=== PATIENT | female | born 1970 | race Caucasian/White ===

== ENCOUNTER 2016-11-29 15:46 | Observation (INO) | payer OTHER ==
[2016-11-29] MEDS ORDERED: DEMEROL INJ IVP ONE (16:19)
[2016-11-29] MEDS ORDERED: ZOFRAN INJ 4 MG VIAL IVP ONE (16:19)
[2016-11-29] MEDS ORDERED: NS 1000 ML 1,000 ML IV ONE (16:19)
--- NOTE | 2016-11-29 16:20 | DR.GENAD ---
HPI - PCP Primary Care Physician: radames olmedo - Complaint/Symptoms Chief Complaint:: patient stated she has been vomiting and diarrhea since last tuesday. went to her doctor last tuesday and was told her gallbladder was bad. seen a surgon this morning they are trying to schedule her surgery but for pain comtroll to come to the er. she seen dr hicks. - Source History Provided: Patient - Mode of Arrival Mode of Arrival: Ambulatory - Timing Onset of Chief Complaint: 11/15/16 PMH - PMH Past Medical History: No Past Surgical History: Yes Surgical History: [employer] Surgery, Hysterectomy - Family History History of Family Medical Conditions: No - Social History Does patient currently use any type of tobacco product: Yes Have you used tobacco products in the last 12 months: Yes Type of Tobacco Use: Cigarettes How many years tobacco product used: 16 Does any household member use tobacco: No Alcohol Use: Rarely Do you use any recreational Drugs:: No Lives With: Family Lives Where: Home - infectious screening In the last 2 months have you had wt loss of >10#?: NO Have you had fever, night sweats or hemotysis?: No Have you traveled outside the country in the last 6 months?: No Isolation: Standard PE - Vital Signs Vitals: Temperature 98.1 F Pulse Rate 82 Respiratory Rate 16 Blood Pressure 107/77 O2 Sat by Pulse Oximetry 100 - Discharge Plan Condition: Stable - Follow ups/Referrals Follow ups/Referrals: RADAMES OLMEDO [Primary Care Provider] - 3 days - Instructions
[2016-11-29] MEDS ORDERED: NS 1000 ML 1,000 ML ONE ×2 (16:28→20:22)
[2016-11-29 16:38] LABS: BASOPHILS # (AUTO) 0.2 X10^3/uL (0.0-0.1); BASOPHILS % (AUTO) 1.4 % (0.2-1.0); EOSINOPHILS # (AUTO) 0.2 x10^3/uL (0.0-0.2); EOSINOPHILS % (AUTO) 1.8 % (0.9-2.9); HEMATOCRIT 39.6 % (36.0-47.0); HEMOGLOBIN 13.5 g/dL (12.0-16.0); LYMPHOCYTES # (AUTO) 2.9 X10^3/uL (1.3-2.9); LYMPHOCYTES % (AUTO) 26.4 % (21.0-51.0); MEAN CORPUSCULAR HEMOGLOBIN 31.2 pg (27.0-34.0); MEAN CORPUSCULAR HGB CONC 34.2 g/dL (33.0-35.0); MEAN CORPUSCULAR VOLUME 91.2 fL (80.0-100.0); MEAN PLATELET VOLUME 8.7 fL (7.4-11.0); MONOCYTES # (AUTO) 0.6 x10^3/uL (0.3-0.8); MONOCYTES % (AUTO) 5.4 % (0.0-13.0); NEUTROPHILS # (AUTO) 7.2 x10^3/uL (2.2-4.8); PLATELET COUNT 267 X10^3/uL (150.0-450.0); RED BLOOD COUNT 4.34 X10^6/uL (3.5-5.4); RED CELL DISTRIBUTION WIDTH 13.5 % (11.6-16.5); WHITE BLOOD COUNT 11.1 X10^3/uL (3.6-10.0)
[2016-11-29] MEDS ORDERED: ZOFRAN INJ 4 MG VIAL ONE (16:39)
[2016-11-29] MEDS ORDERED: DEMEROL INJ ONE (16:39)
[2016-11-29 17:09] LABS: ALANINE AMINOTRANSFERASE 25 Units/L (12-78); ALBUMIN 3.6 g/dL (3.4-5.0); ALKALINE PHOSPHATASE 72 Units/L (46-116); AMYLASE 81 Units/L (25-115); ASPARTATE AMINO TRANSFERASE 21 Units/L (15-37); BLOOD UREA NITROGEN 11 mg/dL (7-18); CALCIUM 8.2 mg/dL (8.5-10.1); CARBON DIOXIDE 28.4 mmol/L (21-32); CHLORIDE 106 mmol/L (98-107); CREATININE 0.91 mg/dL (0.55-1.02); GLUCOSE 90 mg/dL (65-99); LIPASE 190 Units/L (73-393); SODIUM 139 mmol/L (136-145); TOTAL PROTEIN 6.9 g/dL (6.4-8.2); eGFR BLACK RACES > 60 (>60); eGFR NON BLACK RACES > 60 (>60)
[2016-11-29] MEDS: NS 1000 ML 1,000 ML IV SCH (20:25)
[2016-11-29] MEDS: DEMEROL INJ IVP PRN (21:01)
[2016-11-30 03:05] LABS: BILIRUBIN,URINE NEGATIVE (NEGATIVE); BLOOD/HEMOGLOBIN,URINE 2+ (NEGATIVE); GLUCOSE, URINE NEGATIVE (NEGATIVE); KETONES,URINE NEGATIVE (NEGATIVE); LEUKOCYTE ESTERASE ,URINE NEGATIVE (NEGATIVE); NITRITES,URINE NEGATIVE (NEGATIVE); PROTEIN,URINE NEGATIVE (NEGATIVE); UROBILINOGEN,URINE NORMAL (NORMAL)
[2016-11-30 03:11] LABS: APPEARANCE,URINE CLEAR (CLEAR); BACTERIA,URINE NEGATIVE /HPF (NEGATIVE); COLOR,URINE YELLOW (YELLOW); RBC,URINE 0-3 /HPF (NEGATIVE); SQUAMOUS EPITHELIAL CELL,UR RARE /HPF (NEGATIVE)
[2016-11-30] MEDS: DEMEROL INJ IVP PRN ×5 (03:25→22:07)
[2016-11-30] MEDS: NS 1000 ML 1,000 ML IV SCH ×3 (04:12→21:43)
[2016-11-30 05:18] LABS: BASOPHILS # (AUTO) 0.1 X10^3/uL (0.0-0.1); BASOPHILS % (AUTO) 0.6 % (0.2-1.0); EOSINOPHILS # (AUTO) 0.3 x10^3/uL (0.0-0.2); EOSINOPHILS % (AUTO) 2.5 % (0.9-2.9); HEMATOCRIT 35.8 % (36.0-47.0); HEMOGLOBIN 12.3 g/dL (12.0-16.0); LYMPHOCYTES # (AUTO) 3.4 X10^3/uL (1.3-2.9); LYMPHOCYTES % (AUTO) 34.8 % (21.0-51.0); MEAN CORPUSCULAR HEMOGLOBIN 31.7 pg (27.0-34.0); MEAN CORPUSCULAR HGB CONC 34.3 g/dL (33.0-35.0); MEAN CORPUSCULAR VOLUME 92.7 fL (80.0-100.0); MEAN PLATELET VOLUME 9.6 fL (7.4-11.0); MONOCYTES # (AUTO) 0.7 x10^3/uL (0.3-0.8); MONOCYTES % (AUTO) 7.4 % (0.0-13.0); NEUTROPHILS # (AUTO) 5.4 x10^3/uL (2.2-4.8); NEUTROPHILS % (AUTO) 54.7 % (42.0-75.0); PLATELET COUNT 228 X10^3/uL (150.0-450.0); RED BLOOD COUNT 3.86 X10^6/uL (3.5-5.4); RED CELL DISTRIBUTION WIDTH 13.5 % (11.6-16.5); WHITE BLOOD COUNT 9.9 X10^3/uL (3.6-10.0)
[2016-11-30 05:36] LABS: ALANINE AMINOTRANSFERASE 21 Units/L (12-78); ALBUMIN 2.9 g/dL (3.4-5.0); ALKALINE PHOSPHATASE 61 Units/L (46-116); ASPARTATE AMINO TRANSFERASE 15 Units/L (15-37); BLOOD UREA NITROGEN 10 mg/dL (7-18); CALCIUM 7.5 mg/dL (8.5-10.1); CARBON DIOXIDE 27.7 mmol/L (21-32); CHLORIDE 110 mmol/L (98-107); COR CA(FOR HYPOALB) 8.4 mg/dL (8.5-10.1); CREATININE 0.99 mg/dL (0.55-1.02); GLUCOSE 82 mg/dL (65-99); SODIUM 145 mmol/L (136-145); TOTAL PROTEIN 5.7 g/dL (6.4-8.2); eGFR BLACK RACES > 60 (>60); eGFR NON BLACK RACES > 60 (>60)
[2016-11-30] MEDS: NICODERM PATCH 21 MG/24 HR TD SCH ×2 (07:51→08:38)
[2016-11-30] MEDS ORDERED: PHENERGAN INJ 25 MG IV PRN (09:34)
[2016-11-30] MEDS: ZOFRAN INJ 4 MG VIAL IVP PRN ×2 (10:30→18:26)
--- NOTE | 2016-11-30 10:46 | DR.H&P ---
H&P - History & Physical for Day of: H&P Date: 11/29/16 - Chief Complaint Chief Complaint: RUQ ABDOMINAL PAIN - Allergies Allergies/Adverse Reactions: Allergies Allergy/AdvReac Type Severity Reaction Status Date / Time No Known Drug Allergies Allergy Verified 11/29/16 15:46 - History of Present Illness History of Present Illness: IS A 46 YEAR OLD PATIENT OF [facility] IN [place]. SHE PRESENTED TO THE ER WITH COMPLAINTS OF RUQ ABDOMINAL PAIN, VOMITING, AND DIARRHEA SINCE LAST TUESDAY. PATIENT STATED THAT SHE SAW THIS AM AND WAS IN THE PROCESS OF GETTING SCHEDULED FOR SURGERY, BUT HER HOME MEDICATIONS WERE NO LONGER CONTROLLING THE PAIN. ON ARRIVAL TO ER, VITALS WERE 98.1-82-16-100%-107/77. CBC WNL EXCEPT WBC 11.1. CMP WNL EXCEPT CALCIUM 8.2, TOTAL BILIRUBIN 0.10. WE OBTAINED ABDOMINAL SERIES RESULT FROM [facility] OFFICE. IT REPORTED A NONOBSTRUCTING 2CM GALLSTONE IN THE GALLBLADDER. PATIENT WAS GIVEN DEMEROL 25MG IV AND ZOFRAN IV IN ER. PATIENT STATED THAT HER PAIN HAD EASED OFF SOME FROM THE MEDICATIONS. WE ADMITTED PATIENT FOR FURTHER TREATMENT AND EVALUATION. WE STARTED PATIENT ON DEMEROL 25MG IV Q6H PRN, ZOFRAN 4MG IV Q6H PRN, NS @ 125 ML/HR, AND A NICODERM PATCH. WE WILL CONSULT . PATIENT IS MEDICALLY CLEAR SHOULD THEY DECIDE TO PLAN FOR SURGERY. - Past Surgical History Surgical History: Hysterectomy - Social History Does patient currently use any type of tobacco product: Yes Have you used tobacco products in the last 12 months: Yes Type of Tobacco Use: Cigarettes How many years tobacco product used: 16 Does any household member use tobacco: No Alcohol Use: Occasionally Drug Use: None - Medications Home Medications: Estrogen,Randa/Me-Testosterone [Estrogen-Methyltestosterone Tb] 1 tab PO DAILY 11/30/16 [History Confirmed 11/30/16] Hydrochlorothiazide [HYDROCHLOROTHIAZIDE 25 MG TAB *] 1 tab PO DAILY 11/30/16 [ History Confirmed 11/30/16] Meloxicam 1 tab PO AC 11/30/16 [History Confirmed 11/30/16] - Review of Systems Constitutional: No Symptoms Reported. denies: See HPI, Fever, Chills, Sweats, Weakness, Malaise, Other Eyes: No Symptoms Reported. denies: See HPI, Pain, Vision Change, Conjunctivae Inflammation, Eyelid Inflammation, Redness, Other ENT: No Symptoms Reported. denies: See HPI, Ear Pain, Ear Discharge, Nose Pain , Nose Discharge, Nose Congestion, Mouth Pain, Mouth Swelling, Throat Pain, Throat Swelling, Other Respiratory: No Symptoms Reported. denies: See HPI, Cough, Dry, Shortness of Breath, Hemoptysis, SOB with Excertion, Pleuritic Pain, Sputum, Wheezing, Other Cardiovascular: No Symptoms Reported. denies: Chest Pain, See HPI, Palpitations , Orthopnea, Paroxysmal Noc. Dyspnea, Edema, Light Headedness, Other Gastrointestinal: Nausea, Abdominal Pain, Diarrhea. denies: No Symptoms Reported, See HPI, Vomiting, Constipation, Melena, Hematochezia, Other Genitourinary: No Symptoms Reported. denies: See HPI, Dysuria, Frequency, Incontinence, Hematuria, Retention, Other Musculoskeletal: No Symptoms Reported. denies: See HPI, Shoulder Pain, Arm Pain , Back Pain, Hand Pain, Leg Pain, Foot Pain, Neck Pain, Other Skin: No Symptoms Reported. denies: See HPI, Rash, Lesions, Jaundice, Bruising , Wound, Ecchymosis, Other Neurological: No Symptoms Reported. denies: See HPI, Weakness, Numbness, Incoordination, Change in Speech, Confusion, Seizures, Other - Physical Exam Vital Signs: Temperature 97.8 F Pulse Rate [Left Radial] 63 Respiratory Rate 20 Blood Pressure [Right Arm] 130/60 Blood Pressure [Left Arm] 120/58 O2 Sat by Pulse Oximetry 93 Oriented: Normal. negative: Time, Person, Place, Not Oriented, Unable to test, Other Eyes: Normal. negative: Blurred Vision, Diplopia, Discharge, Pain, Redness, Photophobia, Other Ear: Normal. negative: Right, Left, Swelling, Ecchymosis, Hemotypanum, Abrasion , Laceration Nose: Normal. negative: Injected, Discharge, Blood, Other Throat: Normal. negative: Tonsillar Hypertrophy, Red, Exudate, Dry, Other Respiratory: Clear Throughout. negative: Diminished Throughout, Rhonchi Throughout, Rales Throughout, Wheezes Throughout, RUL Clear, RML Clear, RLL Clear, [place] Clear, LML Clear, LLL Clear, RUL Diminished, RML Diminished, RLL Diminished, [place] Diminished, LML Diminished, LLL Diminished, RUL Absent, RML Absent, RLL Absent, [place] Absent, LML Absent, LLL Absent, RUL Rhonchi, RML Rhonchi , RLL Rhonchi, [place] Rhonchi, LML Rhonchi, LLL Rhonchi, RUL Insp. Wheeze, RML Insp. Wheeze, RLL Insp. Wheeze, [place] Insp.Wheeze, LML Insp.Wheeze, LLL Insp.Wheeze, RUL Exp. Wheeze, RML Exp. Wheeze, RLL Exp. Wheeze, [place] Exp. Wheeze , LML Exp. Wheeze, LLL Exp. Wheeze, RUL Rales, RML Rales, RLL Rales, [place] Rales, LML Rales, LLL Rales, RUL Rub, RML Rub, RLL Rub, [place] Rub, LML Rub, LLL Rub, RUL Squeak, RML Squeak, RLL Squeak, [place]ANCIS[place] Squeak, LML Squeak, LLL Squeak Cardiovascular: Normal. negative: Tachycardia, Bradycardia, Irregular, S3, S4, Systolic, Diastolic, Murmur, Edema, Other : Normal. negative: Dysuria, Hematuria, Frequency, Discharge, Testicular Pain , Bleeding, , Other Auscultation: Bowel Sounds: Normal. negative: Bruit, Absent, Increased, Decreased, High Pitched, Other Palpation: Normal. negative: Spleen Enlarged, Liver Enlarged, Mass Pulsatile, Other Tenderness: RUQ, Moderate. negative: Normal, Diffuse, RLQ, LUQ, LLQ, Epigastric , Periumbilical, Suprapubic, Mild, Severe, Rebound, Guarding, Rigidity, Other Skin: Normal. negative: Decreased Turgur, Rash, Papular, Macular, Maculopapular , Vesicular, Pustular, Petechial, Red, Tender, Hot, Diaphoresis, Wound, Bruising , Ecchymosis, Other Musculoskeletal: Normal. negative: Right, Left, Shoulder, Clavicle, Arm, Elbow , Forearm, Wrist, Hand, Hip, Thigh, Knee, Leg, Ankle, Foot, Back:Thoracic, Back: Lumbar, Back:Midline, Back:Paraspinous, Pelvis, Swelling, Tender, Deformity, Pulse Deficit, Motor Deficit, Sensory Deficit, Instability, Crepitance Psychiatric: Normal. negative: Anxiety, Depression, Agitation, Other Mood Description: Calm. negative: Angry, Apathetic, Depressed, Fearful, Flat, Happy, Hostile, Sad, Suspicious, Withdrawn, Anxious, Appropriate, Labile Affect: Angry. negative: Anxious, Depressed, Flat, Hysterical, Quiet, Violent, Normal Speech Pattern: Clear - Assessment/Plan (1) Cholelithiasis Qualifiers: Cholelithiasis location: gallbladder Cholecystitis presence: without cholecystitis Cholangitis presence: C Cholecystitis acuity: C Cholangitis acuity: C Biliary obstruction: without biliary obstruction Qualified Code(s) : K80.20 - Calculus of gallbladder without cholecystitis without obstruction Status: Acute Plan: SURGICAL CONSULT WITH , DEMEROL 25MG IV Q6H PRN PAIN, CONTINUE TO MONITOR
[2016-11-30 11:24] VITALS: BMI 32.8
[2016-11-30] MEDS ORDERED: NS 50 ML IV + SPIKE MINIBAG* 100 ML IV ONE (13:56)
[2016-11-30] MEDS ORDERED: LR 1000 ML IV 1,000 ML IV ONE (13:56)
[2016-11-30] MEDS ORDERED: ANCEF VIAL 1 GM ONE (13:57)
[2016-11-30] MEDS ORDERED: VERSED ONE (14:12)
[2016-11-30] MEDS ORDERED: QUELICIN (OR ANECTINE) ONE (14:12)
[2016-11-30] MEDS ORDERED: ZOFRAN INJ 4 MG VIAL ONE (14:12)
[2016-11-30] MEDS ORDERED: SUPRANE IN ONE (14:12)
[2016-11-30] MEDS ORDERED: DIPRIVAN VIAL ONE (14:12)
[2016-11-30] MEDS ORDERED: NEOSTIGMINE INJ ONE (14:12)
[2016-11-30] MEDS ORDERED: XYLOCAINE 2 % (PLAIN) ONE (14:12)
[2016-11-30] MEDS ORDERED: NORCURON INJ 10 MG VIAL ONE (14:12)
[2016-11-30] MEDS ORDERED: ROBINUL ONE (14:12)
[2016-11-30] MEDS ORDERED: DYLOJECT INJ ONE (14:12)
[2016-11-30] MEDS ORDERED: FENTANYL INJ 250 mcg ONE (14:28)
[2016-11-30] MEDS ORDERED: REGLAN INJ 10 MG VIAL IVP PRN (14:32)
[2016-11-30] MEDS ORDERED: DILAUDID INJ IVP PRN (14:32)
[2016-11-30] MEDS ORDERED: ZOFRAN INJ 4 MG VIAL IVP PRN (14:32)
[2016-11-30] MEDS ORDERED: BENADRYL INJ 50 MG VIAL IVP PRN (14:32)
[2016-11-30] MEDS ORDERED: PHENERGAN INJ 25 MG IVP PRN (14:32)
[2016-11-30] MEDS ORDERED: MARCAINE 0.25% WITH EPI IJ ONE (14:53)
[2016-11-30] MEDS ORDERED: XYLOCAINE-MPF 1% ONE (14:53)
[2016-11-30] MEDS ORDERED: DILAUDID INJ ONE (16:07)
[2016-11-30] MEDS ORDERED: MOBIC TAB 15 MG PO SCH (16:30)
--- NOTE | 2016-11-30 17:40 | PCM.PROG ---
Progress Note - Progress Note for Day of Date: 11/30/16 - Subjective Subjective: WAS ADMITTED FROM THE ER WITH COMPLAINTS OF RUQ PAIN. AN ABDOMINAL SERIES IN HER [facility]IMARY [facility] PH[facility] OFFICE CONFIRMED CHOLELITHIASIS. SHE IS ALERT AND ORIENTED ON ROUNDS WITH COMPLAINTS OF RUQ PAIN. VIALS THIS AM ARE 97.5-63-20-96%-130/60. CBC REPORTS WBC 9.9, RBC 3.86, HGB 12.3, HCT 35.8. CMP REPORTS SODIUM 145, POTASSIUM 3.7, BUN 10, CREATININE 0.99, CALCIUM 8.4, TOTAL PROTEIN 5.7, ALBUMIN 2.9. CONSULTED WITH PATIENT. HE DISCUSSED WITH PATIENT THE PLAN TO REMOVED GALLBLADDER. PATIENT IS IN AGREEMENT WITH PLAN. WE INCREASED DEMEROL TO EVERY 2 HOURS NEEDED FOR PAIN. WE STARTED PHENERGAN 12.5 MG IV Q12H NEEDED FOR NAUSEA. IF HAS NOT RELEASED PATIENT, WE WILL RECHECK LABS AND FOLLOW UP WITH HER IN AM. - Past Medical Family Social History Past Med/Fam/Surg Hx: No changes since H&P Allergies: Allergies No Known Drug Allergies Allergy (Verified 11/29/16 15:46) - Review of Systems ROS: No change since H&P - Vital Signs and I&O's Vital Signs: Temperature 97.7 F Pulse Rate [Left Radial] 60 Pulse Rate 74 Respiratory Rate 16 Blood Pressure [Right Arm] 130/60 Blood Pressure [Left Arm] 120/72 Blood Pressure 139/72 O2 Sat by Pulse Oximetry 96 Intake and Output: Intake & Output 11/28/16 11/29/16 11/30/16 12/01/16 11:59 11:59 11:59 11:59 Intake Total 850 240 Balance 850 240 - Physical Exam Oriented: Normal. negative: Time, Person, Place, Not Oriented, Unable to test, Other Eyes: Normal. negative: Blurred Vision, Diplopia, Discharge, Pain, Redness, Photophobia, Other Ear: Normal. negative: Right, Left, Swelling, Ecchymosis, Hemotypanum, Abrasion , Laceration Nose: Normal. negative: Injected, Discharge, Blood, Other Throat: Normal. negative: Tonsillar Hypertrophy, Red, Exudate, Dry, Other Respiratory: Normal Cardiovascular: Normal. negative: Tachycardia, Bradycardia, Irregular, S3, S4, Systolic, Diastolic, Murmur, Edema, Other : Normal. negative: Dysuria, Hematuria, Frequency, Discharge, Testicular Pain , Bleeding, , Other Auscultation: Bowel Sounds: Normal. negative: Bruit, Absent, Increased, Decreased, High Pitched, Other Tenderness: RUQ, Moderate. negative: Normal, Diffuse, RLQ, LUQ, LLQ, Epigastric , Periumbilical, Suprapubic, Mild, Severe, Rebound, Guarding, Rigidity, Other Skin: Normal. negative: Decreased Turgur, Rash, Papular, Macular, Maculopapular , Vesicular, Pustular, Petechial, Red, Tender, Hot, Diaphoresis, Wound, Bruising , Ecchymosis, Other Musculoskeletal: Normal. negative: Right, Left, Shoulder, Clavicle, Arm, Elbow , Forearm, Wrist, Hand, Hip, Thigh, Knee, Leg, Ankle, Foot, Back:Thoracic, Back: Lumbar, Back:Midline, Back:Paraspinous, Pelvis, Swelling, Tender, Deformity, Pulse Deficit, Motor Deficit, Sensory Deficit, Instability, Crepitance Psychiatric: Normal. negative: Anxiety, Depression, Agitation, Other Mood Description: Calm, Appropriate Affect: Angry. negative: Anxious, Depressed, Flat, Hysterical, Quiet, Violent, Normal Speech Pattern: Clear - Laboratory and Diagnostics Result Diagrams: 11/30/16 03:10 11/30/16 03:10 Labs: Laboratory WBC 9.9 X10^3/uL (3.6-10.0) 11/30/16 03:10 RBC 3.86 X10^6/uL (3.5-5.4) 11/30/16 03:10 Hgb 12.3 g/dL (12.0-16.0) 11/30/16 03:10 Hct 35.8 % (36.0-47.0) L 11/30/16 03:10 MCV 92.7 fL (80.0-100.0) 11/30/16 03:10 MCH 31.7 pg (27.0-34.0) 11/30/16 03:10 MCHC 34.3 g/dL (33.0-35.0) 11/30/16 03:10 RDW 13.5 % (11.6-16.5) 11/30/16 03:10 Plt Count 228 X10^3/uL (150.0-450.0) 11/30/16 03:10 MPV 9.6 fL (7.4-11.0) 11/30/16 03:10 Neut % 54.7 % (42.0-75.0) 11/30/16 03:10 Lymph % 34.8 % (21.0-51.0) 11/30/16 03:10 Beaver % 7.4 % (0.0-13.0) 11/30/16 03:10 Eos % 2.5 % (0.9-2.9) 11/30/16 03:10 Baso % 0.6 % (0.2-1.0) 11/30/16 03:10 Neut # 5.4 x10^3/uL (2.2-4.8) H 11/30/16 03:10 Lymph # 3.4 X10^3/uL (1.3-2.9) H 11/30/16 03:10 Beaver # 0.7 x10^3/uL (0.3-0.8) 11/30/16 03:10 Eos # 0.3 x10^3/uL (0.0-0.2) H 11/30/16 03:10 Baso # 0.1 X10^3/uL (0.0-0.1) 11/30/16 03:10 Absolute Nucleated RBC 0.1 /100WBC 11/30/16 03:10 Sodium 145 mmol/L (136-145) 11/30/16 03:10 Corrected Sodium TNP 11/30/16 03:10 Potassium 3.7 mmol/L (3.5-5.1) 11/30/16 03:10 Chloride 110 mmol/L (98-107) H 11/30/16 03:10 Carbon Dioxide 27.7 mmol/L (21-32) 11/30/16 03:10 BUN 10 mg/dL (7-18) 11/30/16 03:10 Creatinine 0.99 mg/dL (0.55-1.02) 11/30/16 03:10 Est GFR (MDRD) Af Amer > 60 (>60) 11/30/16 03:10 Est GFR (MDRD) Non-Af > 60 (>60) 11/30/16 03:10 Glucose 82 mg/dL (65-99) 11/30/16 03:10 Calcium 7.5 mg/dL (8.5-10.1) L 11/30/16 03:10 Corrected Calcium 8.4 mg/dL (8.5-10.1) L 11/30/16 03:10 Total Bilirubin 0.10 mg/dL (0.2-1.0) L 11/30/16 03:10 AST 15 Units/L (15-37) 11/30/16 03:10 ALT 21 Units/L (12-78) 11/30/16 03:10 Alkaline Phosphatase 61 Units/L (46-116) 11/30/16 03:10 Total Protein 5.7 g/dL (6.4-8.2) L 11/30/16 03:10 Albumin 2.9 g/dL (3.4-5.0) L 11/30/16 03:10 Globulin 2.8 g/dL (2.5-4.5) 11/30/16 03:10 Albumin/Globulin Ratio 1.0 Ratio (1.1-2.1) L 11/30/16 03:10 Amylase 81 Units/L (25-115) 11/29/16 16:31 Lipase 190 Units/L (73-393) 11/29/16 16:31 Specimen Type Clean catch urine 11/30/16 02:55 Urine Color Yellow (YELLOW) 11/30/16 02:55 Urine Appearance Clear (CLEAR) 11/30/16 02:55 Urine pH 7.0 (5.0 - 8.0) 11/30/16 02:55 Ur Specific [place] 1.010 (1.000-1.030) 11/30/16 02:55 Urine Protein Negative (NEGATIVE) 11/30/16 02:55 Urine Glucose (UA) Negative (NEGATIVE) 11/30/16 02:55 Urine Ketones Negative (NEGATIVE) 11/30/16 02:55 Urine Occult Blood 2+ (NEGATIVE) 11/30/16 02:55 Urine Nitrite Negative (NEGATIVE) 11/30/16 02:55 Urine Bilirubin Negative (NEGATIVE) 11/30/16 02:55 Urine Urobilinogen Normal (NORMAL) 11/30/16 02:55 Ur Leukocyte Esterase Negative (NEGATIVE) 11/30/16 02:55 Urine RBC 0-3 /HPF (NEGATIVE) 11/30/16 02:55 Urine WBC None seen /HPF (NEGATIVE) 11/30/16 02:55 Ur Squamous Epith Cells Rare /HPF (NEGATIVE) 11/30/16 02:55 Urine Bacteria Negative /HPF (NEGATIVE) 11/30/16 02:55 Ur Culture Indicated? No/not indicated 11/30/16 02:55 Tissue Pathology To follow 11/30/16 15:25 - Plan (1) Cholelithiasis Status: Acute Qualifiers: Cholelithiasis location: gallbladder Cholecystitis presence: without cholecystitis Cholangitis presence: C Cholecystitis acuity: C Cholangitis acuity: C Biliary obstruction: without biliary obstruction Qualified Code(s) : K80.20 - Calculus of gallbladder without cholecystitis without obstruction Plan: SURGICAL CONSULT WITH , DEMEROL 25MG IV Q6H PRN PAIN, CONTINUE TO MONITOR
[2016-12-01] MEDS: DEMEROL INJ IVP PRN ×5 (00:36→10:00)
[2016-12-01] MEDS: NS 1000 ML 1,000 ML IV SCH ×2 (02:32→06:17)
[2016-12-01 05:05] LABS: ALANINE AMINOTRANSFERASE 44 Units/L (12-78); ALBUMIN 3.1 g/dL (3.4-5.0); ALKALINE PHOSPHATASE 61 Units/L (46-116); ASPARTATE AMINO TRANSFERASE 46 Units/L (15-37); BLOOD UREA NITROGEN 5 mg/dL (7-18); CALCIUM 7.7 mg/dL (8.5-10.1); CARBON DIOXIDE 29.8 mmol/L (21-32); CHLORIDE 108 mmol/L (98-107); COR CA(FOR HYPOALB) 8.4 mg/dL (8.5-10.1); COR NA(FOR HYPERGLY) 143 mmol/L (136-145); CREATININE 0.74 mg/dL (0.55-1.02); GLUCOSE 113 mg/dL (65-99); SODIUM 143 mmol/L (136-145); TOTAL PROTEIN 5.9 g/dL (6.4-8.2); eGFR BLACK RACES > 60 (>60); eGFR NON BLACK RACES > 60 (>60)
[2016-12-01 05:10] LABS: BASOPHILS # (AUTO) 0.1 X10^3/uL (0.0-0.1); BASOPHILS % (AUTO) 0.8 % (0.2-1.0); EOSINOPHILS # (AUTO) 0.1 x10^3/uL (0.0-0.2); HEMATOCRIT 34.7 % (36.0-47.0); HEMOGLOBIN 11.8 g/dL (12.0-16.0); LYMPHOCYTES # (AUTO) 2.3 X10^3/uL (1.3-2.9); LYMPHOCYTES % (AUTO) 19.5 % (21.0-51.0); MEAN CORPUSCULAR HEMOGLOBIN 31.5 pg (27.0-34.0); MEAN CORPUSCULAR HGB CONC 33.9 g/dL (33.0-35.0); MEAN CORPUSCULAR VOLUME 93.1 fL (80.0-100.0); MEAN PLATELET VOLUME 9.5 fL (7.4-11.0); MONOCYTES # (AUTO) 0.7 x10^3/uL (0.3-0.8); MONOCYTES % (AUTO) 5.7 % (0.0-13.0); NEUTROPHILS # (AUTO) 8.5 x10^3/uL (2.2-4.8); PLATELET COUNT 219 X10^3/uL (150.0-450.0); RED BLOOD COUNT 3.73 X10^6/uL (3.5-5.4); RED CELL DISTRIBUTION WIDTH 13.8 % (11.6-16.5); WHITE BLOOD COUNT 11.6 X10^3/uL (3.6-10.0)
[2016-12-01 07:54] VITALS: BP 131/60
[2016-12-01] MEDS: NICODERM PATCH 21 MG/24 HR TD SCH (08:02)
[2016-12-01] MEDS ORDERED: HYDROCHLOROTHIAZIDE 25 MG TAB PO SCH (09:00)
[2016-12-01] MEDS ORDERED: MOBIC TAB 15 MG PO SCH (09:00)
[2016-12-01] MEDS ORDERED: ESTRATEST TAB 1.25/2.5 MG PO SCH (09:00)
--- NOTE | 2016-12-01 16:52 | DR.CARTERD ---
- Discharge Summary for: Discharge Summary for Date of:: 12/01/16 - Admission Date Date of Admission: 11/29/16 - Admission Diagnoses Admission Diagnosis: Cholelithiasis - Discharge Date Discharge Date: 12/01/16 - Discharge Diagnoses Discharge Diagnosis: Cholelithiasis - Hospital Course Hospital Course: IS A 46 YEAR OLD PATIENT OF [facility] IN [place]. SHE PRESENTED TO THE ER WITH COMPLAINTS OF RUQ ABDOMINAL PAIN, VOMITING, AND DIARRHEA SINCE LAST TUESDAY. PATIENT STATED THAT SHE SAW THIS AM AND WAS IN THE PROCESS OF GETTING SCHEDULED FOR SURGERY, BUT HER HOME MEDICATIONS WERE NO LONGER CONTROLLING THE PAIN. ON ARRIVAL TO ER, VITALS WERE 98.1-82-16-100%-107/77. CBC WNL EXCEPT WBC 11.1. CMP WNL EXCEPT CALCIUM 8.2, TOTAL BILIRUBIN 0.10. WE OBTAINED ABDOMINAL SERIES RESULT FROM [facility] OFFICE. IT REPORTED A NONOBSTRUCTING 2CM GALLSTONE IN THE GALLBLADDER. PATIENT WAS GIVEN DEMEROL 25MG IV AND ZOFRAN IV IN ER. PATIENT STATED THAT HER PAIN HAD EASED OFF SOME FROM THE MEDICATIONS. WE ADMITTED PATIENT FOR FURTHER TREATMENT AND EVALUATION. WE STARTED PATIENT ON DEMEROL 25MG IV Q6H PRN, ZOFRAN 4MG IV Q6H PRN, NS @ 125 ML/ HR, AND A NICODERM PATCH. THE DAY FOLLOWING ADMISSION, CONSULTED WITH PATIENT. HE AND PATIENT WERE IN AGREEMENT TO REMOVE GALLBLADDER. TOOK PATIENT TO ER FOR LAPROSCOPIC CHOLECYSTECTOMY. PATIENT TOLERATED WELL AND RETURNED TO THE FLOOR. CLEARED PATIENT TO BE RELEASED. ON THE DAY OF DISCHARGE, PATIENT IS ALERT AND ORIENTED, AMBULATING IN ROOM. PATIENT COMPLAINS OF MILD PAIN TO ABDOMEN. DRESSINGS X 4 NOTED TO ABDOMEN DRY AND INTACT. LUNGS CLEAR ON AUSCULTATION. VITALS WERE 98.2-72-18-94%-129/71. CBC REPORTED WBC 11.6, RBC 3.78, HGB 11.8, HCT 34.7. CMP REPORTED SODIUM 143, POTASSIUM 3.7, BUN 5, CREATININE 0.74, CALCIUM 8.4, AST 46, ALT 44, TOTAL PROTEIN 5.9, ALBUMIN 3.1. WE PLANNED FOR DISCHARGE. INSTRUCTIONS FOR MEDICATIONS AND FOLLOW UP WERE DISCUSSED WITH PATIENT AND FAMILY. BOTH VERBALIZED UNDERSTANDING. WE WILL SEND HER HOME WITH A PRESCRIPTION FOR PERCOCET 5/325 MG Q6H PRN PAIN AND INSTRUCT HER TO CONTINUE HER CURRENT HOME MEDICATIONS. PATIENT IS DISCHARGED HOME IN STABLE CONDITION WITH INSTRUCTIONS TO FOLLOW UP WITH AND [facility] NEXT WEEK. - Discharge Medications Discharge Medications: Estrogen,Randa/Me-Testosterone [Estrogen-Methyltestosterone Tb] 1 tab PO DAILY 11/30/16 [History] Hydrochlorothiazide [HYDROCHLOROTHIAZIDE 25 MG TAB *] 1 tab PO DAILY 11/30/16 [ History] Meloxicam 1 tab PO AC 11/30/16 [History] Oxycodone HCl/Acetaminophen [Percocet 5-325 mg Tablet] 1 each PO Q6H PRN #20 tablet 12/01/16 [Rx]
== END 2016-12-01 11:00 | disposition home or self-care (01) | DRG 419 ==
LOC: ER 15:58 → MED/SURG 19:10
PROVIDERS: ADMIT Internal Medicine; ATTEND Internal Medicine
PROC: 0FT44ZZ Resection of Gallbladder, Percutaneous Endoscopic Approach (ICD-10-PCS; principal; 2016-11-30 14:00)
DX: K80.20 Calculus of gallbladder without cholecystitis without obstruction (principal); R10.84 Generalized abdominal pain; R10.11 Right upper quadrant pain; D72.828 Other elevated white blood cell count; R11.10 Vomiting, unspecified; R19.7 Diarrhea, unspecified
CPT/HCPCS: 36415; 80053; 81001; 82150; 83690; 85025; 93005; 96365; 96374; 96375; 99284; A4216; A4222; S0020; G0378; J0330; J0690; J1170; J2001; J2175; J2250; J2405; J2710; J3010; J3490; J7120

== ENCOUNTER 2019-07-04 16:44 | Observation (INO) ==
[2019-07-04 17:39] LABS: BILIRUBIN,URINE NEGATIVE (NEGATIVE); BLOOD/HEMOGLOBIN,URINE 3+ (NEGATIVE); GLUCOSE, URINE NEGATIVE (NEGATIVE); KETONES,URINE NEGATIVE (NEGATIVE); LEUKOCYTE ESTERASE ,URINE NEGATIVE (NEGATIVE); NITRITES,URINE NEGATIVE (NEGATIVE); PROTEIN,URINE NEGATIVE (NEGATIVE); UROBILINOGEN,URINE NORMAL (NORMAL)
--- NOTE | 2019-07-04 17:40 | DR.GENAD ---
HPI Time Seen Time Seen by Provider: 07/04/19 17:38 PCP Primary Care Physician: JOCELYN TINOCO HPI Comment HPI Comment: PATIENT IS 48YR OLD FEMALE IN ER WITH NAUSEA AND VOMITING ON AND OFF FOR 6 MONTHS, PATIENT SAID HER STOOL IS DARK AND TESTED POSITIVE FOR BLOOD IN PCP OFFICE. SHE IS ALSO VOMITTED BLOOD WELL. Complaint/Symptoms Chief Complaint Doctors Comments: NAUSEA AND VOMITING TIMES 6 MONTHS. Chief Complaint:: PT. C/O INCREASED N/V X 6 MONTHS. PT. STATES SHE STAYS NAUSEATED ALL OF THE TIME. PT. SEEN PCP TODAY AND FECAL OCCULT BLOOD WAS POSITIVE AND THEY TOLD HER THAT HER HEMOGLOBIN WAS LOW. PT. STATES WHEN SHE VOMITED THE OTHER DAY, THERE WAS BLOOD IN IT AND SHE HAS ALSO HAD SOME BLOOD IN HER STOOL. PT. C/O FEELING TIRED AND SHORT OF BREATH AT TIMES. Nurses notes reviewed Nurses Notes Review: Yes Source History Provided: Patient Mode of Arrival Mode of Arrival: Ambulatory Timing Onset of Chief Complaint: 06/04/19 Came on: Suddenly Duration Duration: Intermittent Duration: Days Location Location: ABDOMEN Severity Severity: Moderate Modifying Factors Worsens:: EXERTION. Improves:: REST. Associated Signs and Symptoms Associated Signs and Symptoms: WEAKNESS, Other History Other History: HTN. PMH PMH Past Medical History: Yes Past Medical History: Hypertension Past Medical History Comment: DDD Past Surgical History: Yes Surgical History: Cholecystectomy, Hysterectomy and Other Past Surgical History Comment: NECK, SQUAMOUS CELL CARCINOMA REMOVAL Family History History of Family Medical Conditions: No Social History Does patient currently use any type of tobacco product: Yes Have you used tobacco products in the last 12 months: Yes Type of Tobacco Use: Cigarettes Does any household member use tobacco: Yes Alcohol Use: Occasionally Do you use any recreational Drugs:: No Lives With: Spouse Lives Where: Home infectious screening In the last 2 months have you had wt loss of >10#?: NO Have you had fever, night sweats or hemotysis?: No Have you traveled outside the country in the last 6 months?: No Isolation: Standard ROS Review of Systems Constitutional: See HPI, Weakness and Fatigue; negative Fever Eyes: No Symptoms Reported and See HPI ENTM: No Symptoms Reported and See HPI Respiratoy: No Symptoms Reported and See HPI; negative Moist Cough, Short of Breath and Wheezing Cardiovascular: No Symptoms Reported and See HPI; negative Chest Pain, Edema and Palpitations Gastrointestinal/Abdominal: See HPI, Abdominal Pain, Nausea, Vomiting and Other (VOMITING BLOOD. PASSING BLACK STOOL.) Genitourinary: No Symptoms Reported and See HPI; negative Dysuria, Frequency and Hematuria Neurological: See HPI and Weakness; negative Headache and Dizziness Musculoskeletal: No Symptoms Reported and See HPI; negative Back Pain and Muscle Pain Integumentary: No Symptoms Reported and See HPI; negative Change in Color, Rash and Juandice Hematologic/Lymphatic: No Symptoms Reported and See HPI; negative Easy Bruising and Swollen Glands Endocrine: No Symptoms Reported and See HPI; negative Increased Thirst and Increased Urine Psychiatric: No Symptoms Reported and See HPI All Other Systems: Reviewed and Negative PE Vital Signs Vitals: Temperature 97.6 F Pulse Rate [Left Brachial] 69 Pulse Rate 89 Respiratory Rate 20 Blood Pressure [Left Arm] 118/63 Blood Pressure [Right Arm] 131/60 Blood Pressure 129/76 O2 Sat by Pulse Oximetry 97 General Limitations: No Limitations General Appearance: Alert and In No Apparent Distress Head Head Exam: Normal Inspection and Atraumatic Eyes Eye exam: Normal Appearance, PERRL and EOMI; negative Scleral Icterus and Conjunctival Injection ENT ENT Exam: Normal Exam, Normal Oropharynx, Normal External Ear Exam and TM's Normal Bilaterally External Ear Exam: Normal External Inspection; negative Mastoid Tenderness TM/Canal Exam: Bilateral: Normal Nose Exam: Normal Nose Exam; negative Sinus Tenderness Mouth Exam: Normal Inspection Throat Exam: Normal Inspection Neck Neck Exam: Normal Inspection and Trachea Midline; negative Tenderness and Lymphadenopathy Chest Chest Inspection: Normal Inspection and Symmetric Chest Wall Rise; negative Tenderness Respiratory Respiratory Exam: Normal Lung Sounds Bilat; negative Accessory Muscle Use, Chest Wall Tenderness and Respiratory Distress Respiratory Exam: Bilateral: Clear to Auscultation Cardiovascular Cardiovascular Exam: Regular Rate, Normal Rhythm and Normal Heart Sounds Abdominal Exam Abdominal Exam: Normal Inspection, Normal Bowel Sounds, Soft and Tenderness Abdominal Tenderness: Diffuse and Moderate Extremities Extremities Exam: Normal Inspection Back Back Exam: Normal Inspection Neurologic Neurological Exam: Alert, Oriented X3 and CN II-XII Intact; negative Motor Sensory Deficit Psychiatric Psychiatric Exam: Normal Affect and Normal Mood Skin Skin Exam: Dry MDM Additional Information Additional Information Obtained From: Family Differential Diagnosis Differential Diagnosis: GI BLEEDING, ABDOMINAL PAIN, PUD, DIVERTICULITIS COURSE Treatment Treatment: SEE ORDERS. PROTONIX DRIP. Consultation Consultation Comments: DISCUSSED PATIENT WITH DR. HAND AND SHE WILL ADMIT PATIENT. GI NOTIFIED, WILL DO EGD IN AM. Education/Counseling Education/Counseling: Patient Educated On: Diagnosis ROR Labs Reviewed Laboratory Results Reviewed?: Yes Result Diagrams: 07/05/19 05:41 07/05/19 05:41 Laboratory: WBC 10.1 X10^3/uL (3.6-10.0) H 07/04/19 17:50 RBC 4.63 X10^6/uL (3.5-5.4) 07/04/19 17:50 Hgb 14.8 g/dL (12.0-16.0) 07/04/19 17:50 Hct 43.4 % (36.0-47.0) 07/04/19 17:50 MCV 93.8 fL (80.0-100.0) 07/04/19 17:50 MCH 32.0 pg (27.0-34.0) 07/04/19 17:50 MCHC 34.1 g/dL (33.0-35.0) 07/04/19 17:50 RDW 13.7 % (11.6-16.5) 07/04/19 17:50 Plt Count 357 X10^3/uL (150.0-450.0) 07/04/19 17:50 MPV 7.8 fL (7.4-11.0) 07/04/19 17:50 Neut % (Auto) 45.8 % (42.0-75.0) 07/04/19 17:50 Lymph % (Auto) 43.1 % (21.0-51.0) 07/04/19 17:50 [place] % (Auto) 6.9 % (0.0-13.0) 07/04/19 17:50 Eos % (Auto) 2.4 % (0.9-2.9) 07/04/19 17:50 Baso % (Auto) 1.8 % (0.2-1.0) H 07/04/19 17:50 Neut # (Auto) 4.6 x10^3/uL (2.2-4.8) 07/04/19 17:50 Lymph # (Auto) 4.4 X10^3/uL (1.3-2.9) H 07/04/19 17:50 [place] # (Auto) 0.7 x10^3/uL (0.3-0.8) 07/04/19 17:50 Eos # (Auto) 0.2 x10^3/uL (0.0-0.2) 07/04/19 17:50 Baso # (Auto) 0.2 X10^3/uL (0.0-0.1) H 07/04/19 17:50 Absolute Nucleated RBC 0.1 /100WBC 07/04/19 17:50 PT 11.8 SECONDS (11.8-14.3) 07/04/19 17:50 INR Target Range - 07/04/19 17:50 INR 0.90 (0.8-1.3) 07/04/19 17:50 APTT 29.5 SECONDS (22.9-36.5) 07/04/19 17:50 PTT Comment - 07/04/19 17:50 Sodium 134 mmol/L (136-145) L 07/04/19 17:50 Corrected Sodium TNP 07/04/19 17:50 Potassium 3.4 mmol/L (3.5-5.1) L 07/04/19 17:50 Chloride 97 mmol/L (98-107) L 07/04/19 17:50 Carbon Dioxide 29.4 mmol/L (21-32) 07/04/19 17:50 BUN 20 mg/dL (7-18) H 07/04/19 17:50 Creatinine 1.25 mg/dL (0.55-1.02) H 07/04/19 17:50 Est GFR (MDRD) Af Amer 59 (>60) 07/04/19 17:50 Est GFR (MDRD) Non-Af 49 (>60) L 07/04/19 17:50 Glucose 103 mg/dL (65-99) H 07/04/19 17:50 Calcium 9.2 mg/dL (8.5-10.1) 07/04/19 17:50 Corrected Calcium TNP 07/04/19 17:50 Magnesium 2.1 mg/dL (1.7-2.9) 07/04/19 17:50 Total Bilirubin 0.20 mg/dL (0.2-1.0) 07/04/19 17:50 AST 23 Units/L (15-37) 07/04/19 17:50 ALT 32 Units/L (12-78) 07/04/19 17:50 Alkaline Phosphatase 94 Units/L (46-116) 07/04/19 17:50 Total Protein 7.6 g/dL (6.4-8.2) 07/04/19 17:50 Albumin 4.1 g/dL (3.4-5.0) 07/04/19 17:50 Globulin 3.5 g/dL (2.5-4.5) 07/04/19 17:50 Albumin/Globulin Ratio 1.2 Ratio (1.1-2.1) 07/04/19 17:50 Specimen Type Clean catch urine 07/04/19 17:18 Urine Color Pale yellow (YELLOW) 07/04/19 17:18 Urine Appearance Clear (CLEAR) 07/04/19 17:18 Urine pH 6.0 (5.0 - 8.0) 07/04/19 17:18 Ur Specific [place] 1.015 (1.000-1.030) 07/04/19 17:18 Urine Protein Negative (NEGATIVE) 07/04/19 17:18 Urine Glucose (UA) Negative (NEGATIVE) 07/04/19 17:18 Urine Ketones Negative (NEGATIVE) 07/04/19 17:18 Urine Occult Blood 3+ (NEGATIVE) 07/04/19 17:18 Urine Nitrite Negative (NEGATIVE) 07/04/19 17:18 Urine Bilirubin Negative (NEGATIVE) 07/04/19 17:18 Urine Urobilinogen Normal (NORMAL) 07/04/19 17:18 Ur Leukocyte Esterase Negative (NEGATIVE) 07/04/19 17:18 Urine RBC 5-10 /HPF (0-3) A 07/04/19 17:18 Urine WBC 0-2 /HPF (0-5) 07/04/19 17:18 Ur Squamous Epith Cells Moderate /HPF (NEGATIVE) 07/04/19 17:18 Urine Bacteria Negative /HPF (NEGATIVE) 07/04/19 17:18 Ur Culture Indicated? No/not indicated 07/04/19 17:18 Stool Description Fob tube 07/04/19 18:19 Stl Occult Blood (IFOB) Negative (NEGATIVE) 07/04/19 18:19 Blood Type O POSITIVE 07/04/19 17:50 Antibody Screen Negative 07/04/19 17:50 XRAY XRAY Interpreted by: Radiologist (REPORT NOTED AND DISCUSSED WITH PATIENT.) and Self Opioid Opioid Risk Tool Age (Adryan box if 16-45): No History of Preadolescent Sexual Abuse: No Total: 0 Total Score Risk Category: Low Risk Copyright: David LEON predicting aberrant behaviors Diagnosis Discharge Problem: Acute GI bleeding Abdominal pain Qualifiers: Abdominal location: epigastric Qualified Code(s): R10.13 - Epigastric pain Instructions Instructions: Peptic Ulcer, [id number] Food Choices for Gastroesophageal Reflux Disease, Adult Gastritis, Adult Esophagitis Hypertension, [id number] [place] Diet Forms: Excuse From Work or School Excuse From Work Patient Portal
[2019-07-04 17:48] LABS: APPEARANCE,URINE CLEAR (CLEAR); BACTERIA,URINE NEGATIVE /HPF (NEGATIVE); COLOR,URINE PALE YELLOW (YELLOW); SQUAMOUS EPITHELIAL CELL,UR MODERATE /HPF (NEGATIVE)
[2019-07-04] MEDS ORDERED: NS 1000 ML 1,000 ML ONE (18:00)
[2019-07-04] MEDS ORDERED: PROTONIX INJ 40 MG VIAL ONE (18:01)
[2019-07-04] MEDS ORDERED: NS 100 ML IV 100 ML IV ONE (18:01)
[2019-07-04 18:05] LABS: BASOPHILS # (AUTO) 0.2 X10^3/uL (0.0-0.1); BASOPHILS % (AUTO) 1.8 % (0.2-1.0); EOSINOPHILS # (AUTO) 0.2 x10^3/uL (0.0-0.2); EOSINOPHILS % (AUTO) 2.4 % (0.9-2.9); HEMATOCRIT 43.4 % (36.0-47.0); HEMOGLOBIN 14.8 g/dL (12.0-16.0); LYMPHOCYTES # (AUTO) 4.4 X10^3/uL (1.3-2.9); LYMPHOCYTES % (AUTO) 43.1 % (21.0-51.0); MEAN CORPUSCULAR HGB CONC 34.1 g/dL (33.0-35.0); MEAN CORPUSCULAR VOLUME 93.8 fL (80.0-100.0); MEAN PLATELET VOLUME 7.8 fL (7.4-11.0); MONOCYTES # (AUTO) 0.7 x10^3/uL (0.3-0.8); MONOCYTES % (AUTO) 6.9 % (0.0-13.0); NEUTROPHILS # (AUTO) 4.6 x10^3/uL (2.2-4.8); NEUTROPHILS % (AUTO) 45.8 % (42.0-75.0); PLATELET COUNT 357 X10^3/uL (150.0-450.0); RED BLOOD COUNT 4.63 X10^6/uL (3.5-5.4); RED CELL DISTRIBUTION WIDTH 13.7 % (11.6-16.5); WHITE BLOOD COUNT 10.1 X10^3/uL (3.6-10.0)
[2019-07-04 18:16] LABS: ALANINE AMINOTRANSFERASE 32 Units/L (12-78); ALBUMIN 4.1 g/dL (3.4-5.0); ALKALINE PHOSPHATASE 94 Units/L (46-116); ASPARTATE AMINO TRANSFERASE 23 Units/L (15-37); BLOOD UREA NITROGEN 20 mg/dL (7-18); CALCIUM 9.2 mg/dL (8.5-10.1); CARBON DIOXIDE 29.4 mmol/L (21-32); CHLORIDE 97 mmol/L (98-107); CREATININE 1.25 mg/dL (0.55-1.02); SODIUM 134 mmol/L (136-145); TOTAL PROTEIN 7.6 g/dL (6.4-8.2); eGFR NON BLACK RACES 49 (>60)
[2019-07-04] MEDS: NS 1000 ML 1,000 ML IV SCH (18:19)
[2019-07-04] MEDS: PROTONIX INJ 40 MG VIAL 80 MG in NS 100 ML IV 80 ML IV SCH (18:20)
[2019-07-04] MEDS ORDERED: NICOTINE PATCH TD ONE (18:27)
[2019-07-04] MEDS: NICOTINE PATCH TD SCH (18:34)
[2019-07-04] MEDS ORDERED: DEMEROL INJ IVP ONE (19:53)
[2019-07-04] MEDS ORDERED: ZOFRAN INJ 4 MG VIAL IVP ONE (19:53)
[2019-07-04] MEDS ORDERED: DEMEROL INJ ONE (19:59)
[2019-07-04] MEDS ORDERED: ZOFRAN INJ 4 MG VIAL ONE (20:16)
[2019-07-04] MEDS ORDERED: MORPHINE SULFATE INJ 2 MG INJ IVP PRN (20:27)
[2019-07-04] MEDS ORDERED: ZOFRAN INJ 4 MG VIAL IVP PRN (20:27)
--- NOTE | 2019-07-04 20:51 | RAD ---
HISTORYCHRONIC NAUSEA AND ABD PAIN, SOB CHOLESTUDYACUTE ABDOMEN SERIESCOMPARISONNoneFINDINGSThe trachea is midline. The cardiac silhouette is [unremarkable]. [The lungs are clear without focal mass or consolidation. There is no effusion or pneumothorax.] [The bony thorax is unremarkable].Flat plate and upright evaluation of the abdomen demonstrates a [normal bowel gas pattern]. There is no pneumoperitoneum. No pathological soft tissue mass or calcification can be observed. The bony structures are grossly intact. Surgical clips are seen along the right upper quadrant. There is a metallic ring projecting along the periumbilical region.IMPRESSION1. [No acute cardiopulmonary disease.]2. [Previous cholecystectomy with a nonspecific gas pattern.Electronically signed by: SHARON HOWARD (Jul 04, 2019 20:49:34)
[2019-07-04] MEDS ORDERED: POTASSIUM CHL 40 MEQ/NS 0.45% 500 ML IV PRN (21:22)
[2019-07-04] MEDS ORDERED: POTASSIUM CHL 60 MEQ/NS 0.45% 500 ML IV PRN (21:22)
[2019-07-04] MEDS ORDERED: K-DUR TAB 20 MEQ PO PRN (21:22)
[2019-07-04] MEDS ORDERED: KLOR-CON PO PRN (21:22)
[2019-07-04] MEDS ORDERED: MAGNESIUM SULFATE 1 GRAM/100 mL PREMIX 1 GM/100 ML BAG IV PRN (21:22)
[2019-07-04] MEDS ORDERED: MICRO K EXTEN CAP 10 MEQ PO PRN (21:22)
[2019-07-04] MEDS ORDERED: POTASSIUM CHLORIDE LIQ 20 MEQ UDC PO PRN (21:22)
[2019-07-04] MEDS ORDERED: K-RIDER 10 MEQ/NS 100 ML 10 MEQ/100 ML BAG IV PRN (21:22)
[2019-07-04] MEDS ORDERED: RESTORIL CAP 15 MG PO PRN (21:25)
[2019-07-04 22:59] VITALS: BMI 31.2
[2019-07-05] MEDS: NS 1000 ML 1,000 ML IV SCH ×2 (02:31→10:26)
[2019-07-05] MEDS: PROTONIX INJ 40 MG VIAL 80 MG in NS 100 ML IV 80 ML IV SCH ×2 (05:53→14:50)
[2019-07-05 06:09] LABS: BASOPHILS # (AUTO) 0.1 X10^3/uL (0.0-0.1); EOSINOPHILS # (AUTO) 0.2 x10^3/uL (0.0-0.2); EOSINOPHILS % (AUTO) 2.9 % (0.9-2.9); HEMATOCRIT 39.5 % (36.0-47.0); HEMOGLOBIN 13.5 g/dL (12.0-16.0); LYMPHOCYTES # (AUTO) 2.9 X10^3/uL (1.3-2.9); LYMPHOCYTES % (AUTO) 43.5 % (21.0-51.0); MEAN CORPUSCULAR HEMOGLOBIN 32.2 pg (27.0-34.0); MEAN CORPUSCULAR HGB CONC 34.1 g/dL (33.0-35.0); MEAN CORPUSCULAR VOLUME 94.2 fL (80.0-100.0); MEAN PLATELET VOLUME 8.1 fL (7.4-11.0); MONOCYTES # (AUTO) 0.5 x10^3/uL (0.3-0.8); MONOCYTES % (AUTO) 7.5 % (0.0-13.0); NEUTROPHILS % (AUTO) 45.1 % (42.0-75.0); PLATELET COUNT 295 X10^3/uL (150.0-450.0); RED BLOOD COUNT 4.19 X10^6/uL (3.5-5.4); RED CELL DISTRIBUTION WIDTH 13.5 % (11.6-16.5); WHITE BLOOD COUNT 6.8 X10^3/uL (3.6-10.0)
[2019-07-05 06:22] LABS: ALANINE AMINOTRANSFERASE 25 Units/L (12-78); ALBUMIN 3.3 g/dL (3.4-5.0); ALKALINE PHOSPHATASE 70 Units/L (46-116); ASPARTATE AMINO TRANSFERASE 21 Units/L (15-37); BLOOD UREA NITROGEN 14 mg/dL (7-18); CALCIUM 8.3 mg/dL (8.5-10.1); CARBON DIOXIDE 26.7 mmol/L (21-32); CHLORIDE 104 mmol/L (98-107); COR CA(FOR HYPOALB) 8.9 mg/dL (8.5-10.1); CREATININE 0.96 mg/dL (0.55-1.02); SODIUM 138 mmol/L (136-145); TOTAL PROTEIN 6.2 g/dL (6.4-8.2); eGFR NON BLACK RACES > 60 (>60)
[2019-07-05] MEDS: NICOTINE PATCH TD SCH (08:44)
--- NOTE | 2019-07-05 09:04 | DR.H&P ---
H&P History & Physical for Day of: H&P Date: 07/05/19 Chief Complaint Chief Complaint: Abdominal pain and bloody stool Allergies Allergies Allergy/AdvReac Type Severity Reaction Status Date / Time No Known Drug Allergies Allergy Verified 07/04/19 16:52 History of Present Illness History of Present Illness: Ms. Lieberman is a 48y/o female with a PMH of HTN, chronic opioids dependence, Chronic back and SI joint pain due to DDD presented with epigastric abdominal pain, N/V and dark stools. She states N/V and abdominal pain has been going for 5 months. She noticed dark stools yesterday. She was seen by PCP yesterday and after checking her Hgb and FOBT, she was told to go to the hospital for an EGD. She wanted another GI to do the scope in [place] but that did not work out so she came here to be seen by Dr. Blanc. She states she continues to have epigastric pain. She has been taking goody powder up to 6 times a day. She is also on [place] BID. ED work-up Hgb: 14.8 Abd XR negative GI was contacted, [facility] AD[employer] with Dr. Blanc recommended keeping the patient NPO for possible EGD today. Started protonix drip, IVF and pain control with Demerol Past Medical History Past Medical History: Hypertension Additional Medical History: Chronic back pain due to DDD Past Surgical History Surgical History: Cholecystectomy and Hysterectomy Family History Family Medical History: Cancer, [place], Sudden Cardiac and Hypertension Social History Does patient currently use any type of tobacco product: Yes Have you used tobacco products in the last 12 months: Yes Type of Tobacco Use: Cigarettes How many years tobacco product used: 30 Does any household member use tobacco: Yes Alcohol Use: Occasionally Drug Use: None Medications Home Medications: No Known Drug Allergies Allergy (Verified 07/04/19 16:52) CONTINUE taking the following medications cyclobenzaprine 10 mg PO BID PRN 07/05/19 [History] estrogens-methyltestosterone 1 tab PO DAILY 07/05/19 [History] hydrochlorothiazide 25 mg PO DAILY 07/05/19 [History] hydrocodone-acetaminophen 1 tab PO BID PRN 07/05/19 [History] metoprolol tartrate 50 mg PO BID 07/05/19 [History] pantoprazole 40 mg PO BID 07/05/19 [History] temazepam 15 mg PO QHS PRN 07/05/19 [History] Labs Result Diagrams: 07/05/19 05:41 07/05/19 05:41 Labs: Laboratory WBC 6.8 X10^3/uL (3.6-10.0) 07/05/19 05:41 RBC 4.19 X10^6/uL (3.5-5.4) 07/05/19 05:41 Hgb 13.5 g/dL (12.0-16.0) 07/05/19 05:41 Hct 39.5 % (36.0-47.0) 07/05/19 05:41 MCV 94.2 fL (80.0-100.0) 07/05/19 05:41 MCH 32.2 pg (27.0-34.0) 07/05/19 05:41 MCHC 34.1 g/dL (33.0-35.0) 07/05/19 05:41 RDW 13.5 % (11.6-16.5) 07/05/19 05:41 Plt Count 295 X10^3/uL (150.0-450.0) 07/05/19 05:41 MPV 8.1 fL (7.4-11.0) 07/05/19 05:41 Neut % (Auto) 45.1 % (42.0-75.0) 07/05/19 05:41 Lymph % (Auto) 43.5 % (21.0-51.0) 07/05/19 05:41 [place] % (Auto) 7.5 % (0.0-13.0) 07/05/19 05:41 Eos % (Auto) 2.9 % (0.9-2.9) 07/05/19 05:41 Baso % (Auto) 1.0 % (0.2-1.0) 07/05/19 05:41 Neut # (Auto) 3.0 x10^3/uL (2.2-4.8) 07/05/19 05:41 Lymph # (Auto) 2.9 X10^3/uL (1.3-2.9) 07/05/19 05:41 [place] # (Auto) 0.5 x10^3/uL (0.3-0.8) 07/05/19 05:41 Eos # (Auto) 0.2 x10^3/uL (0.0-0.2) 07/05/19 05:41 Baso # (Auto) 0.1 X10^3/uL (0.0-0.1) 07/05/19 05:41 Absolute Nucleated RBC 0.0 /100WBC 07/05/19 05:41 PT 11.8 SECONDS (11.8-14.3) 07/04/19 17:50 INR Target Range - 07/04/19 17:50 INR 0.90 (0.8-1.3) 07/04/19 17:50 APTT 29.5 SECONDS (22.9-36.5) 07/04/19 17:50 PTT Comment - 07/04/19 17:50 Sodium 138 mmol/L (136-145) 07/05/19 05:41 Corrected Sodium TNP 07/05/19 05:41 Potassium 3.6 mmol/L (3.5-5.1) 07/05/19 05:41 Chloride 104 mmol/L (98-107) 07/05/19 05:41 Carbon Dioxide 26.7 mmol/L (21-32) 07/05/19 05:41 BUN 14 mg/dL (7-18) 07/05/19 05:41 Creatinine 0.96 mg/dL (0.55-1.02) 07/05/19 05:41 Est GFR (MDRD) Af Amer > 60 (>60) 07/05/19 05:41 Est GFR (MDRD) Non-Af > 60 (>60) 07/05/19 05:41 Glucose 94 mg/dL (65-99) 07/05/19 05:41 Calcium 8.3 mg/dL (8.5-10.1) L 07/05/19 05:41 Corrected Calcium 8.9 mg/dL (8.5-10.1) 07/05/19 05:41 Magnesium 2.1 mg/dL (1.7-2.9) 07/04/19 17:50 Total Bilirubin 0.20 mg/dL (0.2-1.0) 07/05/19 05:41 AST 21 Units/L (15-37) 07/05/19 05:41 ALT 25 Units/L (12-78) 07/05/19 05:41 Alkaline Phosphatase 70 Units/L (46-116) 07/05/19 05:41 Total Protein 6.2 g/dL (6.4-8.2) L 07/05/19 05:41 Albumin 3.3 g/dL (3.4-5.0) L 07/05/19 05:41 Globulin 2.9 g/dL (2.5-4.5) 07/05/19 05:41 Albumin/Globulin Ratio 1.1 Ratio (1.1-2.1) 07/05/19 05:41 Specimen Type Clean catch urine 07/04/19 17:18 Urine Color Pale yellow (YELLOW) 07/04/19 17:18 Urine Appearance Clear (CLEAR) 07/04/19 17:18 Urine pH 6.0 (5.0 - 8.0) 07/04/19 17:18 Ur Specific [place] 1.015 (1.000-1.030) 07/04/19 17:18 Urine Protein Negative (NEGATIVE) 07/04/19 17:18 Urine Glucose (UA) Negative (NEGATIVE) 07/04/19 17:18 Urine Ketones Negative (NEGATIVE) 07/04/19 17:18 Urine Occult Blood 3+ (NEGATIVE) 07/04/19 17:18 Urine Nitrite Negative (NEGATIVE) 07/04/19 17:18 Urine Bilirubin Negative (NEGATIVE) 07/04/19 17:18 Urine Urobilinogen Normal (NORMAL) 07/04/19 17:18 Ur Leukocyte Esterase Negative (NEGATIVE) 07/04/19 17:18 Urine RBC 5-10 /HPF (0-3) A 07/04/19 17:18 Urine WBC 0-2 /HPF (0-5) 07/04/19 17:18 Ur Squamous Epith Cells Moderate /HPF (NEGATIVE) 07/04/19 17:18 Urine Bacteria Negative /HPF (NEGATIVE) 07/04/19 17:18 Ur Culture Indicated? No/not indicated 07/04/19 17:18 Stool Description Fob tube 07/04/19 18:19 Stl Occult Blood (IFOB) Negative (NEGATIVE) 07/04/19 18:19 Blood Type O POSITIVE 07/04/19 17:50 Antibody Screen Negative 07/04/19 17:50 Review of Systems Constitutional: No Symptoms Reported Eyes: No Symptoms Reported ENT: No Symptoms Reported Respiratory: No Symptoms Reported Cardiovascular: No Symptoms Reported Gastrointestinal: Nausea, Vomiting, Abdominal Pain and Melena Genitourinary: No Symptoms Reported Musculoskeletal: Back Pain Skin: No Symptoms Reported Neurological: No Symptoms Reported Physical Exam Vital Signs: Temperature 97.8 F Pulse Rate [Left Brachial] 74 Pulse Rate 89 Respiratory Rate 20 Blood Pressure [Left Arm] 91/55 Blood Pressure [Right Arm] 131/60 Blood Pressure 129/76 O2 Sat by Pulse Oximetry 94 Oriented: Normal Eyes: Normal Respiratory: Clear Throughout Cardiovascular: Normal Auscultation: Bowel Sounds: Normal Tenderness: Epigastric and Mild Skin: Normal Musculoskeletal: Normal Psychiatric: Normal Mood Description: Calm Speech Pattern: Clear and Appropriate Assessment/Plan (1) Acute GI bleeding: Status: Acute Plan: Presenting with emesis, melena, hx of chronic NSAID use with good powder, concern for PUD. Monitor H/H, hgb: 13.5 this AM. FOBT negative here, reports positive in clinic. Continue NPO, protonix and IVF GI consult pending, possible EGD today (2) Abdominal pain: Qualifiers: Abdominal location: epigastric Qualified Code(s): R10.13 - Epigastric pain Status: Acute Plan: Likely due to underlying PUD or gastritis, esophagitis Continue pain control (3) HTN (hypertension): Qualifiers: Hypertension type: essential hypertension Qualified Code(s): I10 - Essential (primary) hypertension Status: Acute Plan: hold anti-hypertensive medications for now, continue IVF (4) DDD (degenerative disc disease): Qualifiers: Spinal region: lumbosacral Qualified Code(s): M51.37 - Other int ervertebral disc degeneration, lumbosacral region Status: Acute (5) Tobacco use: Status: Acute Plan: nicotine patch (6) SURI (acute kidney injury): Status: Acute Plan: resolved with hydration, Creat. down from 1.25 to 0.96. Review H&P Reviewed: Yes Patient was examined?: Yes
[2019-07-05] MEDS ORDERED: STERILE WATER IRRIGATION IR ONE (10:50)
[2019-07-05] MEDS ORDERED: FLEXERIL TAB 10 MG PO PRN (11:17)
[2019-07-05] MEDS ORDERED: NORCO 10/325 TAB PO PRN (14:17)
[2019-07-05 15:20] VITALS: BP 122/61
--- NOTE | 2019-07-05 16:22 | W.DIS.FURT ---
Summary of Discharge Discharge Summary of Date Date of Exam: 07/05/19 Admission Date Date of Admission: 07/04/19 Admission Diagnosis Hospital Course: Ms. Lieberman is a 48y/o female with a PMH of HTN, chronic opioids dependence, Chronic back and SI joint pain due to DDD presented with epigastric abdominal pain, N/V and dark stools. She states N/V and abdominal pain has been going for 5 months. She noticed dark stools yesterday. She was seen by PCP yesterday and after checking her Hgb and FOBT, she was told to go to the hospital for an EGD. On admission,Hgb: 14.8 Abd XR negative. GI was contacted, [facility] [employer] with Dr. Blanc recommended keeping the patient NPO for possible EGD in the morning. Patient was stated on Protonix drip, IVF and pain control. EGD was done and showed distal esophagitis an esophageal stricture, multiple gastric and duodenal ulcers, and severe erosive gastritis. All ulcers have clean white bases. There is severe duodenitis as well. Patient was advised to take protonix 40 mg BID and avoid anti-inflammatory medications including goody powder. Patient was started on a soft diet. She was stable for discharge. She will follow up with PCP and GI in one week. Vital Signs: Vital Signs (72 hours) 07/04/19 16:47 07/04/19 18:00 07/04/19 19:00 Temperature 97.5 F L Pulse Rate 73 84 89 Pulse Rate [Left Brachial] Respiratory Rate 17 20 19 Blood Pressure 125/76 121/71 129/76 Blood Pressure [Left Arm] O2 Sat by Pulse Oximetry 95 98 98 07/04/19 20:00 07/04/19 20:08 07/04/19 20:38 Temperature 97.6 F Pulse Rate Pulse Rate [Left Brachial] 69 Respiratory Rate 18 20 18 Blood Pressure Blood Pressure [Left Arm] 118/63 O2 Sat by Pulse Oximetry 97 07/04/19 20:52 07/05/19 00:00 07/05/19 04:00 Temperature 97.8 F 97.8 F Pulse Rate Pulse Rate [Left Brachial] 74 76 74 Respiratory Rate 22 18 18 Blood Pressure Blood Pressure [Left Arm] 118/63 91/55 O2 Sat by Pulse Oximetry 99 97 94 L 07/05/19 08:00 07/05/19 08:44 07/05/19 09:14 Temperature 97.8 F Pulse Rate Pulse Rate [Left Brachial] 73 Respiratory Rate 20 20 20 Blood Pressure Blood Pressure [Left Arm] 100/55 O2 Sat by Pulse Oximetry 95 07/05/19 12:00 07/05/19 14:05 07/05/19 14:20 Temperature 98.1 F 97.6 F Pulse Rate Pulse Rate [Left Brachial] 71 79 73 Respiratory Rate 22 16 17 Blood Pressure Blood Pressure [Left Arm] 121/68 125/67 133/77 O2 Sat by Pulse Oximetry 99 98 99 07/05/19 14:35 07/05/19 14:50 07/05/19 15:05 Temperature Pulse Rate Pulse Rate [Left Brachial] 73 72 73 Respiratory Rate 16 16 18 Blood Pressure Blood Pressure [Left Arm] 124/62 124/60 122/61 O2 Sat by Pulse Oximetry 98 98 97 Labs: Laboratory Last Values WBC 6.8 X10^3/uL (3.6-10.0) 07/05/19 05:41 RBC 4.19 X10^6/uL (3.5-5.4) 07/05/19 05:41 Hgb 13.5 g/dL (12.0-16.0) 07/05/19 05:41 Hct 39.5 % (36.0-47.0) 07/05/19 05:41 MCV 94.2 fL (80.0-100.0) 07/05/19 05:41 MCH 32.2 pg (27.0-34.0) 07/05/19 05:41 MCHC 34.1 g/dL (33.0-35.0) 07/05/19 05:41 RDW 13.5 % (11.6-16.5) 07/05/19 05:41 Plt Count 295 X10^3/uL (150.0-450.0) 07/05/19 05:41 MPV 8.1 fL (7.4-11.0) 07/05/19 05:41 Neut % (Auto) 45.1 % (42.0-75.0) 07/05/19 05:41 Lymph % (Auto) 43.5 % (21.0-51.0) 07/05/19 05:41 [place] % (Auto) 7.5 % (0.0-13.0) 07/05/19 05:41 Eos % (Auto) 2.9 % (0.9-2.9) 07/05/19 05:41 Baso % (Auto) 1.0 % (0.2-1.0) 07/05/19 05:41 Neut # (Auto) 3.0 x10^3/uL (2.2-4.8) 07/05/19 05:41 Lymph # (Auto) 2.9 X10^3/uL (1.3-2.9) 07/05/19 05:41 [place] # (Auto) 0.5 x10^3/uL (0.3-0.8) 07/05/19 05:41 Eos # (Auto) 0.2 x10^3/uL (0.0-0.2) 07/05/19 05:41 Baso # (Auto) 0.1 X10^3/uL (0.0-0.1) 07/05/19 05:41 Absolute Nucleated RBC 0.0 /100WBC 07/05/19 05:41 PT 11.8 SECONDS (11.8-14.3) 07/04/19 17:50 INR Target Range - 07/04/19 17:50 INR 0.90 (0.8-1.3) 07/04/19 17:50 APTT 29.5 SECONDS (22.9-36.5) 07/04/19 17:50 PTT Comment - 07/04/19 17:50 Sodium 138 mmol/L (136-145) 07/05/19 05:41 Corrected Sodium TNP 07/05/19 05:41 Potassium 3.6 mmol/L (3.5-5.1) 07/05/19 05:41 Chloride 104 mmol/L (98-107) 07/05/19 05:41 Carbon Dioxide 26.7 mmol/L (21-32) 07/05/19 05:41 BUN 14 mg/dL (7-18) 07/05/19 05:41 Creatinine 0.96 mg/dL (0.55-1.02) 07/05/19 05:41 Est GFR (MDRD) Af Amer > 60 (>60) 07/05/19 05:41 Est GFR (MDRD) Non-Af > 60 (>60) 07/05/19 05:41 Glucose 94 mg/dL (65-99) 07/05/19 05:41 Calcium 8.3 mg/dL (8.5-10.1) L 07/05/19 05:41 Corrected Calcium 8.9 mg/dL (8.5-10.1) 07/05/19 05:41 Magnesium 2.1 mg/dL (1.7-2.9) 07/04/19 17:50 Total Bilirubin 0.20 mg/dL (0.2-1.0) 07/05/19 05:41 AST 21 Units/L (15-37) 07/05/19 05:41 ALT 25 Units/L (12-78) 07/05/19 05:41 Alkaline Phosphatase 70 Units/L (46-116) 07/05/19 05:41 Total Protein 6.2 g/dL (6.4-8.2) L 07/05/19 05:41 Albumin 3.3 g/dL (3.4-5.0) L 07/05/19 05:41 Globulin 2.9 g/dL (2.5-4.5) 07/05/19 05:41 Albumin/Globulin Ratio 1.1 Ratio (1.1-2.1) 07/05/19 05:41 Specimen Type Clean catch urine 07/04/19 17:18 Urine Color Pale yellow (YELLOW) 07/04/19 17:18 Urine Appearance Clear (CLEAR) 07/04/19 17:18 Urine pH 6.0 (5.0 - 8.0) 07/04/19 17:18 Ur Specific [place] 1.015 (1.000-1.030) 07/04/19 17:18 Urine Protein Negative (NEGATIVE) 07/04/19 17:18 Urine Glucose (UA) Negative (NEGATIVE) 07/04/19 17:18 Urine Ketones Negative (NEGATIVE) 07/04/19 17:18 Urine Occult Blood 3+ (NEGATIVE) 07/04/19 17:18 Urine Nitrite Negative (NEGATIVE) 07/04/19 17:18 Urine Bilirubin Negative (NEGATIVE) 07/04/19 17:18 Urine Urobilinogen Normal (NORMAL) 07/04/19 17:18 Ur Leukocyte Esterase Negative (NEGATIVE) 07/04/19 17:18 Urine RBC 5-10 /HPF (0-3) A 07/04/19 17:18 Urine WBC 0-2 /HPF (0-5) 07/04/19 17:18 Ur Squamous Epith Cells Moderate /HPF (NEGATIVE) 07/04/19 17:18 Urine Bacteria Negative /HPF (NEGATIVE) 07/04/19 17:18 Ur Culture Indicated? No/not indicated 07/04/19 17:18 Stool Description Fob tube 07/04/19 18:19 Stl Occult Blood (IFOB) Negative (NEGATIVE) 07/04/19 18:19 Tissue Pathology To follow 07/05/19 13:55 Blood Type O POSITIVE 07/04/19 17:50 Antibody Screen Negative 07/04/19 17:50 Reason For Visit: GASTROINTESTINAL BLEEDING,HEMATEMESIS,MELENA, Discharge Date Discharge Date: 07/05/19 Discharge Diagnosis All Active Problems (Updated 07/09/19 @ 09:20 by Michelle Bellamy) NSAID long-term use (Acute) PUD (peptic ulcer disease) (Acute) SURI (acute kidney injury) (Acute) Tobacco use (Acute) DDD (degenerative disc disease) (Acute) HTN (hypertension) (Acute) Cholelithiasis (Acute) Acute GI bleeding (Acute) Abdominal pain (Acute) Plan of Treatment: Continue with present treatment and follow up plan. Pt is to keep follow up appointment as instructed and take medications as ordered. Discharge Medications Discharge Medications: No Known Drug Allergies Allergy (Verified 07/04/19 16:52) CONTINUE taking the following medications cyclobenzaprine 10 mg PO BID PRN 07/05/19 [History] estrogens-methyltestosterone 1 tab PO DAILY 07/05/19 [History] hydrochlorothiazide 25 mg PO DAILY 07/05/19 [History] hydrocodone-acetaminophen 1 tab PO BID PRN 07/05/19 [History] metoprolol tartrate 50 mg PO BID 07/05/19 [History] temazepam 15 mg PO QHS PRN 07/05/19 [History] New Prescriptions nicotine 1 patch TRANSDERMAL Q24H #28 ea 07/05/19 [Rx] pantoprazole 40 mg PO BID 30 Days #60 tab 07/05/19 [Rx] Follow up and Referral Follow Up: 1 Week (PCP) 1 Week (GI ) Discharge Disposition Assessment: Stable no acute distress noted at time of discharge.
== END 2019-07-05 15:57 | disposition home or self-care (01) ==
LOC: ER 16:46 → OBS 16:46
PROVIDERS: ADMIT Internal Medicine; ATTEND Internal Medicine
DX: R13.19 Other dysphagia; K92.0 Hematemesis; N17.9 Acute kidney failure, unspecified; K92.1 Melena; K29.80 Duodenitis without bleeding; Z79.1 Long term (current) use of non-steroidal anti-inflammatories (NSAID); K25.9 Gastric ulcer, unspecified as acute or chronic, without hemorrhage or perforation; K22.2 Esophageal obstruction; K26.9 Duodenal ulcer, unspecified as acute or chronic, without hemorrhage or perforation; K20.8 Other esophagitis; K29.60 Other gastritis without bleeding
CPT/HCPCS: 36415; 74022; 80053; 81001; 82270; 83735; 85025; 85610; 85730; 86850; 86900; 86901; 96360; 96361; 96365; 96367; 96374; 96375; 99284; A4217; A4222; C9113; G0378; J2175; J2270; J2405; J7030; J7050